=== PATIENT | male | born 1990 | race Caucasian/White ===

== ENCOUNTER 2017-09-21 21:21 | Emergency (ER) | payer OTHER ==
[~2017-09-21] VITALS: Ht 177.8 cm; Wt 86.2 kg
[2017-09-21 21:38] VITALS: Ht 177.8 cm; Wt 86.2 kg
[2017-09-21 21:46] VITALS: BP 137/75
== END 2017-09-21 21:46 | disposition other institution (70) ==
LOC: ED 21:21
DX: Z02.89 Encounter for other administrative examinations (principal)